=== PATIENT | female | born 1960 | race Caucasian/White ===

== ENCOUNTER 2023-03-30 12:01 | Outpatient (CLI) | payer OTHER | END 2023-03-30 12:02 | disposition home or self-care (01) | LOC: SCSRAD 12:01 | PROVIDERS: ATTEND Specialist | DX: M77.32 Calcaneal spur, left foot (principal); M19.072 Primary osteoarthritis, left ankle and foot ==

== ENCOUNTER 2023-04-06 08:57 | Outpatient (CLI) | payer OTHER | END 2023-04-06 08:58 | disposition home or self-care (01) | LOC: SCSMRI 08:57 | PROVIDERS: ATTEND Specialist | DX: M47.22 Other spondylosis with radiculopathy, cervical region (principal); M47.813 Spondylosis without myelopathy or radiculopathy, cervicothoracic region | CPT/HCPCS: 72141 ==